=== PATIENT | female | born 1965 | race Caucasian/White ===

== ENCOUNTER 2016-11-10 09:06 | Emergency (ER) | payer OTHER ==
[~2016-11-10] VITALS: Ht 152.4 cm; Wt 45.0 kg
[2016-11-10 09:08] VITALS: Ht 152.4 cm; Wt 45.0 kg
[2016-11-10] MEDS ORDERED: ONDANSETRON (ODT) 4 MG TAB ODT STA (09:56)
[2016-11-10] MEDS ORDERED: CIPR500T4 PO (10:40)
[2016-11-10] MEDS ORDERED: ONDA4TAB8 PO (10:40)
[2016-11-10] MEDS ORDERED: LOPE2CAP PO (10:41)
--- NOTE | 2016-11-10 10:46 | ERD ---
ER Documentation Chief Complaint Date/Time DATE: 11/10/16 TIME: 10:43 Chief Complaint VOMITING , DIARRHEA WITH ABD CRAMPING X 5 DAYS HPI This 51-year-old female who presents to the emergency department today vomiting and diarrhea and some abdominal cramping for the past 4 days. States she was traveling [facility] and states she went to the doctor there and was given some fluids and amoxicillin. States she is no longer taking the amoxicillin. Denies any fevers or chills. ROS All systems reviewed and are negative except as per history of present illness. Medications Home Meds Active Scripts Loperamide Hcl* (Imodium*) 2 Mg Capsule, 2 MG PO .AFTER EA LOOSE BM Y for DIARRHEA, #10 TAB Prov:CARMELA LÓPEZ PA-C 11/10/16 Ciprofloxacin Hcl* (Ciprofloxacin Hcl*) 500 Mg Tablet, 500 MG PO BID for 5 Days , TAB Prov:CARMELA LÓPEZ PA-C 11/10/16 Ondansetron Hcl* (Zofran*) 4 Mg Tablet, 4 MG PO Q6H for NAUSEA AND/OR VOMITING, #30 TAB Prov:CARMELA LÓPEZ PA-C 11/10/16 Allergies Allergies: Coded Allergies: No Known Allergy (Unverified , 11/10/16) PMhx/Soc Medical and Surgical Hx: pt denies Medical Hx, pt denies Surgical Hx Hx Alcohol Use: No Hx Substance Use: No Hx Tobacco Use: No Physical Exam Vitals Vital Signs Date Time Temp Pulse Resp B/P Pulse Ox O2 Delivery O2 Flow Rate FiO2 11/10/16 09:08 98.1 98 18 156/70 100 Physical Exam Const: No acute distress Head: Atraumatic Eyes: Normal Conjunctiva ENT: Normal External Ears, Nose and Mouth. Neck: Full range of motion..~ No meningismus. Resp: Clear to auscultation bilaterally Cardio: Regular rate and rhythm, no murmurs Abd: Soft, non tender, non distended. Normal bowel sounds Skin: No petechiae or rashes Neur: Awake and alert Psych: Normal Mood and Affect Results 24 hrs Current Medications Medications (Trade) Dose Ordered Sig/Mian Route PRN Reason Start Time Stop Time Status Last Admin Dose Admin Ondansetron HCl (Zofran Odt) 4 mg ONCE STAT ODT 1/17/17 09:56 11/10/16 09:57 DC 11/10/16 10:08 Procedures/MDM This 51-year-old female who presents to the emergency department today complaining of vomiting and diarrhea for the past 4 days. Patient has no right lower quadrant and the left lower quadrant pain on physical exam. She is afebrile and otherwise well-appearing. I do not feel the patient requires laboratory workup or imaging. I did discuss the patient with Dr. Camilo brenner and the patient was recently traveling in [facility] patient will be treated for her vomiting and diarrhea with Imodium, Zofran as well as Cipro for possible traveler's diarrhea or gastroenteritis . Patient is not tachycardic and she is well-appearing and I do not feel the patient requires IV antibiotics or IV fluids at this time. Low suspicion for any acute surgical abdomen. At this time the patient is stable for discharge and outpatient management. Patient should follow up with their PCP in the next 1-2 days. They may return to the emergency department sooner for any persistent or worsening of symptoms. Patient understood and agreed with the plan. Departure Diagnosis: Primary Impression: Vomiting and diarrhea Condition: Fair Patient Instructions: Self-Care for Vomiting and Diarrhea, Traveler's Diarrhea (6Y-Adult) [facility] Usted se marquez hecho un examen mdico de control que le indica que no est en laurence condicin que requiera tratamiento urgente en el Departamento de Emergencia. Un estudio ms profundo y el tratamiento de skinner condicin pueden esperar sin ningn riesgo hasta que usted sea atendida/o en el consultorio de skinner mdico o laurence cl tere. Es responsabilidad suya arreglar laurence jacey para el seguimiento del francine. MANEJO DE CONDICIONES NO URGENTES EN EL FUTURO 1) Si usted tiene un mdico de atencin primaria: Usted debera llamar a skinner mdico de atencin primaria antes de venir al departamento de emergencia. Despus de las horas de consultorio, skinner doctor o skinner asociado/a est disponible por telfono. El mdico o enfermero de yonas en el servicio telefnico puede asesorarle por colby medio para atender el problema, o francine contrario se puede programar laurence jacey. 2) Si usted no tiene un mdico de atencin primaria: Llame al mdico o clnica de referencia que aparece abajo jonas las horas de consultorio para hacer laurence jacey para que le vean. CLINICAS: [facility] [id number] [facility] [id number] [facility] [phone] [place] [phone] [place] [id number] [phone] [facility]. [phone] [address] Additional Instructions: Llame al doctor MAANA y felicia laurence JACEY PARA DENTRO DE 1-2 HSU.Dgale a la secretaria que nosotros le instruimos hacer esta jacey.Avise o llame si skinner condicin se empeora antes de la jacey. Regresa aqui si peor o no mejor. Take Zofran for nausea or vomiting Take Imodium for diarrhea Take antibiotics as prescribed CARMELA LÓPEZ PA-C Nov 10, 2016 10:46
== END 2016-11-10 11:06 | disposition home or self-care (01) ==
LOC: FTE 09:06
DX: R11.10 Vomiting, unspecified (principal); R19.7 Diarrhea, unspecified
CPT/HCPCS: 99284